=== PATIENT | male | born 1980 | race Caucasian/White ===

== ENCOUNTER 2017-08-03 05:33 | Day surgery (SDC) | payer BC ==
[~2017-08-03] VITALS: Ht 162.6 cm; Wt 90.7 kg
[~2017-08-03 05:33] MED LIST: ALLEGRA-D 12 H1 EACH PO; LISINOPRIL20 MG PO; WELLBUTRIN SR100 MG PO
--- NOTE | 2017-08-03 08:45 | NUR ---
08/03/17 0845 Laura Jimenez 0822: PT ARRIVED TO PACU AWAKE AND TALKING. 0826: PT REPORTED PAIN 8/10, MEDICATION GIVEN PER EMAR. 0828: MD AT BEDSIDE SPEAKING WITH PT. 0833: O2 SAT 100%, O2 REMOVED. 0840: PT REPORTED PAIN 6/10 MEDICATION GIVEN PER EMAR. 0841: O2 SAT DECREASED TO 90%, NC PLACED ON PT WITH 2L. 0842: PT ASLEEP. O2 SAT 95%
--- NOTE | 2017-08-03 09:04 | NUR ---
PT ARRIVED FROM PACU. PT REPORTING 4/10 PAIN AND QUICKLY FALLING BACK TO SLEEP. PT WEANED OFF OF O2 WITH THIS RN PRESENT. PT MAINTAINING O2 SATURATIONS ABOVE 92% ON ROOM AIR. PRESENT AT BEDSIDE. BED RAILS UP. CALL LIGHT WITHIN REACH.
--- NOTE | 2017-08-03 09:32 | NUR ---
MARGAUX STATES THAT MD IS AWARE OF L BBB. STATES THAT PRIMARY CARE WILL FOLLOW UP WITH PT AND THAT NO FURTHER ACTION IS NEEDED TODAY.
--- NOTE | 2017-08-03 10:02 | NUR ---
PT REPORTS HE IS READY TO GO HOME. PT UP TO REST ROOM. PT REPORTING 4/10 PAIN THAT IS TOLERABLE. PT TOLERATING PO FLUIDS AND FOOD.
--- NOTE | 2017-08-03 10:37 | EKG ---
[facility] [address] [place] [address] Signed Normal sinus rhythm Left bundle branch block Abnormal ECG Confirmed by MORRIS SOTO MD ([id number]) on 08/03/2017 10:36:25 AM Also confirmed by MORRIS SOTO MD (Javon) on 08/03/2017 10:37:03 AM Electronically Signed By: MORRIS SOTO MD 08/03/17 1036 Electronically Signed By: MORRIS SOTO MD 08/03/17 1037 PATIENT NAME: CARIDADMALLORIE Electrocardiogram DATE OF : 80 PHYSICIAN: MORRIS SOTO MD REPORT #: [id number] REPORT IS CONFIDENTIAL AND NOT TO BE RELEASED WITHOUT AUTHORIZATION
--- NOTE | 2017-08-03 10:49 | NUR ---
PT STEADY ON FEET WITH ONE PERSON STAND BY ASSIST. PT TOLERATING PO FLUIDS AND FOOD. PT REPORTS 4/10 PAIN WHICH IS TOLERABLE FOR HIM. DISCHARGE INSTRUCTIONS REVIEWED WITH PT AND SISTER. PT VERBALIZES UNDERSTANDING OF DISCHARGE INSTURCTIONS.
--- NOTE | 2017-08-24 15:10 | OR ---
[facility] [address] [place], [place] [address] Signed DATE OF PROCEDURE: 08/03/17 PREOPERATIVE DIAGNOSIS: Chronic tonsillitis. POSTOPERATIVE DIAGNOSIS: Chronic tonsillitis. PROCEDURE: Tonsillectomy. SURGEON: Chris Zarate MD. ANESTHESIA: General Orotracheal, Genoveva Au CRNA. PREOPERATIVE HISTORY Jesus is a 36-year-old male with chronic tonsillitis, multiple infections, recurrent despite antibiotics, and appropriate medications. He is taken to the operating room for the above-mentioned procedures. OPERATIVE PROCEDURE AND FINDINGS After informed consent, the patient was taken the operating room, placed in supine position where general orotracheal anesthesia was induced. The patient and procedure were verified. The patient was repositioned. McIvor mouth gag was placed into suspension. Headlight exam of the pharynx showed 2+ cryptic tonsils. Left tonsil was grasped with a tenaculum retracted medially and removed from its fossa with mucosal sparing incision with coblation. The field was dry after the procedure. Same procedure on the right tonsil. Tonsils were sent to pathology. The mouth gag was released for several minutes. Reinspection showed no bleeding points. The pharynx was suctioned clear of blood and secretions. The mouth gag was removed. The patient was awakened, extubated, transported to recovery room in good condition. No complications. BLOOD LOSS: Minimal. SPECIMEN: To pathology. DRAINS: No drains. Chris Zarate MD GC/Modl Electronically Signed By: CHRIS ZARATE MD 08/24/17 1510 PATIENT NAME: MALLORIE CMLEAN OPERATIVE REPORT DATE OF : 80 PHYSICIAN: CHRIS ZARATE MD REPORT #: [id number] REPORT IS CONFIDENTIAL AND NOT TO BE RELEASED WITHOUT AUTHORIZATION [address] [address] Signed /[id number] cc: Megan Rm PA-C Electronically Signed By: CHRIS ZARATE MD 08/24/17 1510 PATIENT NAME: MALLORIE MCLEAN OPERATIVE REPORT DATE OF : 80 PHYSICIAN: CHRIS ZARATE MD REPORT #: [id number] REPORT IS CONFIDENTIAL AND NOT TO BE RELEASED WITHOUT AUTHORIZATION
== END 2017-08-03 10:20 | disposition home or self-care (01) ==
LOC: OPS 05:33 → DS 05:33 → OPS 06:45 → DS 06:45 → OPS 10:20
PROVIDERS: Otolaryngology
PROC: 0CBPXZZ Excision of Tonsils, External Approach (ICD-10-PCS; principal; 2017-08-03 06:45)
DX: J35.01 Chronic tonsillitis (principal); I10 Essential (primary) hypertension; F32.9 Major depressive disorder, single episode, unspecified; J30.2 Other seasonal allergic rhinitis; Z88.0 Allergy status to penicillin; Z88.1 Allergy status to other antibiotic agents; Z79.899 Other long term (current) drug therapy
CPT/HCPCS: 00170; 93005; 93010; J0330; J1100; J2250; J2405; J2704; J3010; J7120